=== PATIENT | female | born 1990 | race Caucasian/White ===

== ENCOUNTER 2018-03-06 14:59 | Emergency (ER) | payer MEDICAID ==
[~2018-03-06] VITALS: Ht 165.1 cm; Wt 97.5 kg
[2018-03-06 15:04] VITALS: BP 146/82
--- NOTE | 2018-03-06 15:16 | NUR ---
PATIENT PRESENTS TO ED WITH C/O HEAD PAIN S/P HEAD INJURY ON SUNDAY. STATES SHE HIT HER HEAD ON A HAND DRYER. WAS SEEN AT [facility] AND GIVEN ARNIE. PT REPORTS THEY DID NOT DO A HEAD CT AND SHE IS WORRIED BECAUSE THE PAIN IS STILL SEVERE AND HER HEARING GOES "IN AND OUT". 7/10 TOP OF HEAD. PT REPORTS DIZZINESS, DENIES N/V. REPORTS LETHARGY. 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 ER MD MADE AWARE OF PT STATUS.
--- NOTE | 2018-03-06 15:21 | NUR ---
Patient being evaluated by physician at bedside.
[2018-03-06 15:46] VITALS: BP 142/78
== END 2018-03-06 15:46 | disposition home or self-care (01) ==
LOC: MED 14:59
DX: S06.0X0A Concussion without loss of consciousness, initial encounter (principal); S01.00XA Unspecified open wound of scalp, initial encounter; E11.9 Type 2 diabetes mellitus without complications; Z88.0 Allergy status to penicillin; X58.XXXA Exposure to other specified factors, initial encounter; Y93.H9 Activity, other involving exterior property and land maintenance, building and construction; Y92.89 Other specified places as the place of occurrence of the external cause; Y99.8 Other external cause status
CPT/HCPCS: 82948; 99282

== ENCOUNTER 2018-06-24 16:14 | Emergency (ER) | payer MEDICAID ==
[~2018-06-24] VITALS: Ht 162.6 cm; Wt 98.1 kg
[2018-06-24 16:24] VITALS: BP 139/77
--- NOTE | 2018-06-24 16:33 | NUR ---
URINE CUP HANDED TO PT FOR SAMPLE
--- NOTE | 2018-06-24 16:50 | NUR ---
PT AMBULATED TO ER BED 03
--- NOTE | 2018-06-24 16:55 | NUR ---
PATIENT PRESENTS TO ED WITH THE C/O CONGESTION. LUNGS CLEAR. DENIES ANY FEVER. NO BLOOD IN SPUTUM. DENIES N/V/D; SKIN IS PINK/WARM/DRY; AAOX4 WITH EVEN AND STEADY GAIT. PT DENIES ANY CP, SOB, OR COUGH AT THIS TIME. PATIENT STATES PAIN OF 0/10 AT THIS TIME; VSS; PATIENT POSITIONED FOR COMFORT; HOB ELEVATED; BEDRAILS UP X2; BED DOWN. ER MD MADE AWARE OF PT STATUS.
[2018-06-24 18:19] VITALS: BP 125/72
--- NOTE | 2018-06-24 18:19 | NUR ---
Patient discharged with v/s stable. Written and verbal after care instructions given and explained. Patient verbalized understanding. Ambulatory with steady gait. All questions addressed prior to discharge. Advised to follow up with PMD.
== END 2018-06-24 18:19 | disposition home or self-care (01) ==
LOC: MED 16:14
DX: J40 Bronchitis, not specified as acute or chronic (principal); J45.909 Unspecified asthma, uncomplicated; E11.9 Type 2 diabetes mellitus without complications; Z88.0 Allergy status to penicillin
CPT/HCPCS: 99283

== ENCOUNTER 2018-07-09 08:17 | Emergency (ER) | payer MEDICAID ==
[~2018-07-09] VITALS: Ht 165.1 cm; Wt 96.6 kg
--- NOTE | 2018-07-09 08:23 | NUR ---
PT AMBULATES TO BED 11
[2018-07-09 08:25] VITALS: BP 126/77
--- NOTE | 2018-07-09 08:30 | NUR ---
28 YO F C/O PRODUCTIVE COUGH, BILATERAL EAR PAIN AND MOODY. PER PT YELLOW PHLEGM WITH SCANT BLOOD IS PRESENT. WHEEZING BILATERALLY, PT PLACED IN BED AND CONNECTED TO MONITOR. ER AWARE.
--- NOTE | 2018-07-09 08:36 | NUR ---
Patient being evaluated by physician at bedside.
[2018-07-09] MEDS ORDERED: METF1000 PO (08:40)
[2018-07-09] MEDS ORDERED: ALBU0.0912 IH (08:40)
[2018-07-09] MEDS ORDERED: NACL 0.9% 500 ML IV SCH (08:41)
[2018-07-09 08:59] LABS: BASOPHILS # (AUTO) 0.1 K/uL (0.00-0.22); BASOPHILS % (AUTO) 0.3 % (0.0-2.0); EOSINOPHILS # (AUTO) 0.1 K/uL (0-0.4); EOSINOPHILS % (AUTO) 0.7 % (0.0-4.0); HEMATOCRIT 42.2 % (36-48); HEMOGLOBIN 14.2 g/dL (12.0-16.0); LYMPHOCYTES # (AUTO) 1.5 K/uL (2.5-16.5); LYMPHOCYTES % (AUTO) 8.1 % (20.5-51.1); MEAN CORPUSCULAR HEMOGLOBIN 27 pg (27-31); MEAN CORPUSCULAR HGB CONC 34 g/dL (33-37); MEAN CORPUSCULAR VOLUME 81.5 fL (80-94); MONOCYTES # (AUTO) 1.3 K/uL (0.8-1.0); MONOCYTES % (AUTO) 7.2 % (1.7-9.3); NEUTROPHILS # (AUTO) 15.7 K/uL (1.8-7.7); NEUTROPHILS % (AUTO) 83.7 % (42.2-75.2); PLATELET COUNT (AUTO) 361 K/uL (140-450); RED BLOOD CELL COUNT(AUTO) 5.18 MIL/uL (4.20-5.40); RED CELL DISTRIBUTION WIDTH 13.2 % (11.6-13.7); WHITE BLOOD COUNT (AUTO) 18.8 K/uL (4.8-10.8)
[2018-07-09 09:13] LABS: CARBON DIOXIDE 24.8 mmol/L (21-32); CREATININE 0.7 mg/dL (0.6-1.3); POTASSIUM 3.8 mmol/L (3.5-5.1)
[2018-07-09 09:17] LABS: BILIRUBIN,URINE NEGATIVE (NEGATIVE); BLOOD, URINE NEGATIVE (NEGATIVE); COLOR,URINE YELLOW (YELLOW); LEUKOCYTE ESTERASE ,URINE 1+ (NEGATIVE); NITRITE, URINE NEGATIVE (NEGATIVE); PH,URINE 6.5 (5.0-9.0); UGLUCOSE NEGATIVE (NEGATIVE)
[2018-07-09 09:19] LABS: ALBUMIN 3.5 g/dL (3.4-5.0); TOTAL BILIRUBIN 0.6 mg/dL (0.0-1.0)
[2018-07-09] MEDS ORDERED: ACETAMINOPHEN 325 MG TAB PO ONE (09:20)
[2018-07-09 09:24] LABS: APPEARANCE,URINE HAZY (CLEAR)
[2018-07-09 09:36] LABS: RBC,URINE 0-5 /HPF (0-5)
[2018-07-09] MEDS ORDERED: LEVOFLOXACIN 750 MG/D5W PREMIX 150 ML IV ONE (09:45)
--- NOTE | 2018-07-09 09:52 | NUR ---
ONLY 500 ML OF FLUID INFUSED FROM 1000ML BAG. PT TOLERATED WELL, NO ADVERSE REACTION OBSERVED.
--- NOTE | 2018-07-09 10:43 | NUR ---
DR VALADEZ AT BEDSIDE. PT STATED THAT HEADACHE DECREASED TO 6/10 AFTER TYLENOL ADMINISTRATION.
[2018-07-09] MEDS ORDERED: KETOROLAC 30 MG/ML VIAL IVP ONE (10:45)
[2018-07-09] MEDS ORDERED: NACL 0.9% 1,000 ML IV ONE (10:45)
--- NOTE | 2018-07-09 11:32 | NUR ---
MEDICAITON ADMISTERED ORDERED, PT STATES MOODY DECREASED TO 3/10. REMAINS TACHYCARDIC HR 113 ON MONITOR.
--- NOTE | 2018-07-09 13:35 | NUR ---
Patient discharged with v/s stable. Written and verbal after care instructions given and explained. Patient alert, oriented and verbalized understanding of instructions. Ambulatory with steady gait. All questions addressed prior to discharge. ID band removed. Patient advised to follow up with PMD. Rx of motrin, zofran, levofloxacin, codeine cough syrup given. Patient educated on indication of medication including possible reaction and side effects. Opportunity to ask questions provided and answered.
[2018-07-09 13:41] VITALS: BP 121/72
== END 2018-07-09 13:35 | disposition home or self-care (01) ==
LOC: MED 08:17
DX: N39.0 Urinary tract infection, site not specified (principal); E11.9 Type 2 diabetes mellitus without complications; Z88.0 Allergy status to penicillin; Z79.84 Long term (current) use of oral hypoglycemic drugs; Z79.899 Other long term (current) drug therapy
CPT/HCPCS: 36415; 71045; 80053; 81001; 81025; 82948; 83605; 85025; 87040; 87086; 93005; 96365; 96366; 96375; 99284; J1885; J1956; J7030; Q0092

== ENCOUNTER 2018-10-14 16:09 | Emergency (ER) | payer MEDICAID ==
[~2018-10-14] VITALS: Ht 165.1 cm; Wt 98.5 kg
[~2018-10-14 16:09] MED LIST: ALBU0.0912 IH; METF1000 PO
[2018-10-14 16:32] VITALS: BP 129/65
--- NOTE | 2018-10-14 16:41 | NUR ---
PT AMBULATED TO BED 04.
--- NOTE | 2018-10-14 16:57 | NUR ---
PT DECIDED NOT TO WAIT FOR MD SAEED---AFTER SPEAKING WITH PT SHE DECIDED TO SEE HER PMD UPCOMING APPT
== END 2018-10-14 16:57 | disposition left against medical advice (07) ==
LOC: MED 16:09
DX: R20.0 Anesthesia of skin (principal); R51 Headache; Z53.21 Procedure and treatment not carried out due to patient leaving prior to being seen by health care provider
CPT/HCPCS: 82948

== ENCOUNTER 2018-10-18 21:34 | Emergency (ER) | payer MEDICAID ==
[~2018-10-18] VITALS: Ht 165.1 cm; Wt 98.4 kg
[2018-10-18 21:40] VITALS: BP 142/74
--- NOTE | 2018-10-18 21:40 | NUR ---
PATIENT AMBULATED TO ER BED 5.
--- NOTE | 2018-10-18 21:59 | NUR ---
28 Y/O F PRESENTED TO ED WITH C/O RASH THROUGHOUT BODY X3 DAYS. REDDENED RASH NOTED TO R, L AC, AND CHEST. PT SELF MEDICATED WITH BENADRYL, NO RELIEF. PER PT "HAVE BEEN STRATCHING AND I THINK IT MADE IT WORSE." DENIES PAIN. NO CHANGES IN FOOD OR DAILY SOAPS AND DETERGENTS. ERMD NOTIFIED. WILL CONTINUE TO MONITOR.
[2018-10-18] MEDS ORDERED: diphenhydrAMINE 50 MG/ML VIAL IM ONE (22:15)
--- NOTE | 2018-10-18 22:30 | NUR ---
PATIENT RESTING AT THIS TIME. NO SIGNS OF DISTRESS.
[2018-10-18 22:42] LABS: BASOPHILS # (AUTO) 0.1 K/uL (0.00-0.22); BASOPHILS % (AUTO) 0.6 % (0.0-2.0); EOSINOPHILS # (AUTO) 0.3 K/uL (0-0.4); EOSINOPHILS % (AUTO) 2.7 % (0.0-4.0); HEMATOCRIT 43.6 % (36-48); HEMOGLOBIN 14.4 g/dL (12.0-16.0); LYMPHOCYTES # (AUTO) 3.5 K/uL (2.5-16.5); LYMPHOCYTES % (AUTO) 32.4 % (20.5-51.1); MEAN CORPUSCULAR HEMOGLOBIN 28 pg (27-31); MEAN CORPUSCULAR HGB CONC 33 g/dL (33-37); MEAN CORPUSCULAR VOLUME 83.6 fL (80-94); MONOCYTES # (AUTO) 0.8 K/uL (0.8-1.0); MONOCYTES % (AUTO) 7.8 % (1.7-9.3); NEUTROPHILS # (AUTO) 6.1 K/uL (1.8-7.7); NEUTROPHILS % (AUTO) 56.5 % (42.2-75.2); PLATELET COUNT (AUTO) 362 K/uL (140-450); RED BLOOD CELL COUNT(AUTO) 5.21 MIL/uL (4.20-5.40); WHITE BLOOD COUNT (AUTO) 10.8 K/uL (4.8-10.8)
[2018-10-18 22:59] LABS: ANION GAP 14.8 (8-16); CARBON DIOXIDE 24.7 mmol/L (21-32); POTASSIUM 3.5 mmol/L (3.5-5.1)
[2018-10-18 23:05] LABS: ALBUMIN 3.6 g/dL (3.4-5.0); TOTAL BILIRUBIN 0.4 mg/dL (0.0-1.0)
[2018-10-18 23:51] VITALS: BP 137/82
--- NOTE | 2018-10-18 23:51 | NUR ---
Patient discharged with v/s stable. Written and verbal after care instructions given and explained. Patient alert, oriented and verbalized understanding of instructions. Ambulatory with steady gait. All questions addressed prior to discharge. ID band removed. Patient advised to follow up with PMD. Rx of DIPHENHYDRAMINE HYDROCHLORIDE 25MG AND PREDNISONE 50MG given. Patient educated on indication of medication including possible reaction and side effects. Opportunity to ask questions provided and answered.
== END 2018-10-18 23:51 | disposition home or self-care (01) ==
LOC: MED 21:34
DX: S40.862A Insect bite (nonvenomous) of left upper arm, initial encounter (principal); E11.9 Type 2 diabetes mellitus without complications; Z79.84 Long term (current) use of oral hypoglycemic drugs; Z79.899 Other long term (current) drug therapy; Z88.0 Allergy status to penicillin; W57.XXXA Bitten or stung by nonvenomous insect and other nonvenomous arthropods, initial encounter; Y93.89 Activity, other specified; Y92.89 Other specified places as the place of occurrence of the external cause; Y99.8 Other external cause status
CPT/HCPCS: 36415; 80053; 81002; 81025; 85025; 96372; 99283; J1200

== ENCOUNTER 2018-11-07 11:20 | Emergency (ER) | payer MEDICAID ==
[~2018-11-07] VITALS: Ht 165.1 cm; Wt 96.6 kg
[2018-11-07 11:36] VITALS: BP 129/89
--- NOTE | 2018-11-07 11:36 | NUR ---
Patient ambulated to bed 11. RN evaluating patient at bedside.
--- NOTE | 2018-11-07 11:46 | NUR ---
Dr. Webster evaluating patient at bedside.
--- NOTE | 2018-11-07 11:50 | NUR ---
PT PRESENTED TO ED C/O BILATERAL ARM RASHES [id number], PT STATED IT COMES AND GOES AND IS CONCERNED WHY SHE'S BEEN HAVING THE RASH. AAOX4, RR EVEN UNLABORED, BILATERAL ARMS NOTED WITH SKIN RASH NO ITCHING AT THIS TIME, NO C/O PAIN AT THE SITE. DR MUHAMMAD MADE AWARE, BED IN LOWEST POSITION. WILL CONTINUE TO MONITOR CLOSELY.
[2018-11-07 12:15] VITALS: BP 129/89
--- NOTE | 2018-11-07 12:15 | NUR ---
Patient discharged with v/s stable. Written and verbal after care instructions given and explained. Patient alert, oriented and verbalized understanding of instructions. Ambulatory with steady gait. All questions addressed prior to discharge. ID band removed. Patient advised to follow up with PMD. Rx of HYDROCORTISONE 2.5% TOPICAL CREAM given. Patient educated on indication of medication including possible reaction and side effects. Opportunity to ask questions provided and answered.
== END 2018-11-07 12:15 | disposition home or self-care (01) ==
LOC: MED 11:20
DX: L30.9 Dermatitis, unspecified (principal); E11.9 Type 2 diabetes mellitus without complications; Z79.84 Long term (current) use of oral hypoglycemic drugs; Z79.899 Other long term (current) drug therapy; Z88.0 Allergy status to penicillin
CPT/HCPCS: 82948; 99282

== ENCOUNTER 2019-01-25 19:45 | Emergency (ER) | payer MEDICAID ==
[~2019-01-25] VITALS: Ht 165.1 cm; Wt 97.1 kg
--- NOTE | 2019-01-25 19:52 | NUR ---
PT AMBULATED TO ER BED 11
[2019-01-25 19:54] VITALS: BP 128/73
--- NOTE | 2019-01-25 20:04 | NUR ---
28 YO F BIB SELF AND PRESENTS TO ED C/O SHAKING X 3-4 DAYS. PT ALSO STATES "I FEEL LIKE MY TONGUE WANTS TO GO DOWN MY THROAT. I CAN FEEL SOMETHING IN MY THROAT" AND SENSATION OF RAPID HEART RATE STARTING TODAY. DENIES SOB OR CP OR KNOWN ALLERGIC RXN. PT ALSO DENIES HX OF ANXIETY. 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 -- PT AWAKE, A/O X 4. PT APPEARS ANXIOUS; RESTLESS, UPSET. ANSWERS QUESTIONS IN CLEAR, COMPLETE SENTENCES. -- SKIN PINK, WARM, DRY. BREATHING EVEN, UNLABORED. -- PT STICKS OUT TONGUE WITHOUT DIFFICULTY. TONGUE APPEARS PINK, NORMAL. PT CAN SWALLOW WITHOUT DIFFICULTY. -- PT IS TACHYCARDIC @ 124 BPM. PMH-- HTN, DM, HIGH CHOLESTEROL, PULMONARY DYSPLASIA AT BS-- 232
--- NOTE | 2019-01-25 20:04 | NUR ---
DR. BONDS EVALUATING AT BEDSIDE.
[2019-01-25] MEDS ORDERED: LORazepam 2 MG/ML VIAL IM ONE (20:10)
--- NOTE | 2019-01-25 21:10 | NUR ---
PT STATES SHE FEELS TIRED AFTER RECEIVING ATIVAN INJECTION; STATES SHE STILL FEELS LIKE SHE HAS SOMETHING IN HER THROAT.
--- NOTE | 2019-01-25 21:40 | NUR ---
PT TAKEN TO CT VIA WC.
--- NOTE | 2019-01-25 22:10 | NUR ---
PT BACK FROM CT
[2019-01-25 23:53] VITALS: BP 135/89
== END 2019-01-25 23:53 | disposition home or self-care (01) ==
LOC: MED 19:45
DX: F41.8 Other specified anxiety disorders (principal); E11.9 Type 2 diabetes mellitus without complications; Z79.84 Long term (current) use of oral hypoglycemic drugs; Z79.899 Other long term (current) drug therapy; Z88.0 Allergy status to penicillin
CPT/HCPCS: 70486; 70490; 81025; 96372; 99284; J2060

== ENCOUNTER 2019-05-21 19:28 | Emergency (ER) | payer MEDICAID ==
[~2019-05-21] VITALS: Ht 165.1 cm; Wt 99.8 kg
[2019-05-21 19:35] VITALS: BP 122/76
[2019-05-21 19:40] VITALS: BP 122/76
[2019-05-21] MEDS: DEXAMETHASONE 10 MG/ML VIAL IM ONE (21:29)
== END 2019-05-21 21:45 | disposition home or self-care (01) ==
LOC: MED 19:28
DX: J20.9 Acute bronchitis, unspecified (principal); E11.9 Type 2 diabetes mellitus without complications; I10 Essential (primary) hypertension; Z79.899 Other long term (current) drug therapy; Z88.0 Allergy status to penicillin
CPT/HCPCS: 71045; 87804; 96372; 99284; J1100

== ENCOUNTER 2020-09-02 17:14 | Emergency (ER) | payer MEDICAID ==
[~2020-09-02] VITALS: Ht 165.1 cm; Wt 97.5 kg
[2020-09-02 17:21] VITALS: BP 130/85
--- NOTE | 2020-09-02 17:27 | NUR ---
PATIENT AMBULATED WITH STEADY GAIT TO BED 7.
--- NOTE | 2020-09-02 17:32 | NUR ---
30 Y/O FEMALE C/O GENERALIZED WEAKNESS, N/V , HEADACHE X4 DAYS. HR 108, BLOOD SUGAR 155 AT THIS TIME. PT STATES SHE IS "JUST NOT FEELING WELL", AND WANTED TO COME TO ER TO GET EVALUATED. DENIES ANY DRUG OR ALCOHOL USE. PATIENT STATES SHE CHECKED HER BS YESTERDAY AND WAS IN THE 300S PMH: DM
[2020-09-02] MEDS: ONDANSETRON 4 MG/2 ML VIAL IVP ONE (18:27)
[2020-09-02] MEDS: NACL 0.9% 1,000 ML IV ONE (18:27)
[2020-09-02] MEDS ORDERED: ONDA8TAB87 PO (18:41)
[2020-09-02 19:35] VITALS: BP 118/78
--- NOTE | 2020-09-04 19:39 | NUR ---
LATE ENTRY-- 0.9% NS BOLUS DISCONTINUED AT 193
== END 2020-09-02 19:35 | disposition home or self-care (01) ==
LOC: MED 17:14
DX: R00.2 Palpitations (principal); R11.2 Nausea with vomiting, unspecified; R19.7 Diarrhea, unspecified; E11.9 Type 2 diabetes mellitus without complications; Z88.0 Allergy status to penicillin; Z79.84 Long term (current) use of oral hypoglycemic drugs; Z79.899 Other long term (current) drug therapy
CPT/HCPCS: 81002; 81025; 93005; 96361; 96374; 99283; J2405; J7030

== ENCOUNTER 2020-12-12 13:10 | Emergency (ER) | payer MEDICAID ==
[~2020-12-12] VITALS: Ht 165.1 cm; Wt 92.5 kg
[~2020-12-12 13:10] MED LIST changes: +ONDA8TAB87 PO
[2020-12-12 13:18] VITALS: BP 135/55
--- NOTE | 2020-12-12 13:26 | NUR ---
Pt ambulated to bed 04 with steady/even gait.
--- NOTE | 2020-12-12 13:30 | NUR ---
30 y/o F BIB self from home c/o left foot pain x 2 weeks. Pt states standing for long periods at work worsens pain. 8/10, pressure/constant, non-radiating. Denies trauma, fall, injury. Pt reports numbness/tingling to bilateral feet. +ROM +CMS +Swelling to L lateral foot. Tylenol 500mg yesterday with minor relief to pain. pedal pulses 2+. pt states light feeling upon palaption to Lt foot 4th digit. PMH: DM2, asthma, HLD Meds: Insulin, metformin, atorvastatin Allergy: PCN
--- NOTE | 2020-12-12 13:45 | NUR ---
LAUREN DELA CRUZ AT BEDSIDE EXAMINING PT
[2020-12-12] MEDS ORDERED: NAPR-54 PO (14:03)
[2020-12-12] MEDS ORDERED: GABA300C PO (14:03)
[2020-12-12] MEDS ORDERED: KETOROLAC 30 MG/ML VIAL IM ONE (14:05)
[2020-12-12 14:30] VITALS: BP 135/55
--- NOTE | 2020-12-12 14:30 | NUR ---
Patient discharged with v/s stable. Written and verbal after care instructions given and explained. Patient alert, oriented and verbalized understanding of instructions. Ambulatory with steady gait. All questions addressed prior to discharge. ID band removed. Patient advised to follow up with PMD. Rx of GABAPENTIN AND NAPROXEN given. Patient educated on indication of medication including possible reaction and side effects. Opportunity to ask questions provided and answered.
== END 2020-12-12 14:30 | disposition home or self-care (01) ==
LOC: MED 13:10
DX: M79.671 Pain in right foot (principal); M79.672 Pain in left foot; E11.40 Type 2 diabetes mellitus with diabetic neuropathy, unspecified; Z79.84 Long term (current) use of oral hypoglycemic drugs; Z79.899 Other long term (current) drug therapy; Z88.0 Allergy status to penicillin
CPT/HCPCS: 96372; 99283; J1885

== ENCOUNTER 2020-12-20 15:05 | Emergency (ER) | payer MEDICAID ==
[~2020-12-20 15:05] MED LIST changes: +GABA300C PO; +NAPR-54 PO
--- NOTE | 2020-12-20 16:01 | NUR ---
PATIENT LEFT WITHOUT BEING SEEN BY DR. SCHULTZ. NO FURTHER CARE PROVIDED FOR PATIENT.
== END 2020-12-20 16:01 | disposition left against medical advice (07) ==
LOC: MED 15:05
DX: R19.7 Diarrhea, unspecified (principal); Z53.21 Procedure and treatment not carried out due to patient leaving prior to being seen by health care provider

== ENCOUNTER 2021-03-29 00:26 | Emergency (ER) | payer MEDICAID ==
[~2021-03-29] VITALS: Ht 165.1 cm; Wt 88.5 kg
[2021-03-29 00:40] VITALS: BP 118/75
--- NOTE | 2021-03-29 00:42 | NUR ---
TO LOBBY A/W BED AMBULATORY
--- NOTE | 2021-03-29 01:06 | NUR ---
PT AMBULATED TO BED #2
[2021-03-29] MEDS ORDERED: IBUPROFEN 600 MG TAB PO ONE (01:10)
--- NOTE | 2021-03-29 02:07 | NUR ---
30 Y/0 F BIB SELF WITH C/O RT ANKLE PAIN/ PT STATES THAT ON 03/27 SHE STARTED TO FEEL PAIN AND SWELLING BEGAN ON 03/28. PT SAID THAT SHE WAS WALKING ON THE HURT ANKLE ALL DAY AND IT STARTED TO SWELL TO THE SIZE OF A GOLF BALL. PT STATES 8/10 PAIN WHEN RESTING, 10/10 WHEN WALKING.PT STATES THAT SHE WAS HOSPITALIZED LAST WEEK FOR 5X DAYS . PT HAD A RASH AND SWOLLEN FINGERS. PT WAS TOLD TO FOLLOW UP WITH DOCTOR TO RULE OUT LUPUS/ ETELVINA DISEASE. PT STATES SHE IS GOING TO FOLLOW UP BUT APPT IS NOT UNTIL AUGUST. PT TOOK TYLENOL FOR PAIN. PT DENIES F/V/COUGH/ SOB . ONLY HAS NAUSEA WHEN PAIN COMES ON. MED HX:DIABETIC
--- NOTE | 2021-03-29 03:15 | NUR ---
PT RT ANKLE WRAPPED PER SONIA
[2021-03-29 03:31] VITALS: BP 114/66
--- NOTE | 2021-03-29 04:09 | NUR ---
The patient's care was reviewed and supervised by Rosa Garcia RN.
== END 2021-03-29 03:37 | disposition home or self-care (01) ==
LOC: MED 00:26
DX: S93.401A Sprain of unspecified ligament of right ankle, initial encounter (principal); E11.9 Type 2 diabetes mellitus without complications; I10 Essential (primary) hypertension; Z88.0 Allergy status to penicillin; Z79.899 Other long term (current) drug therapy; Z79.84 Long term (current) use of oral hypoglycemic drugs; X50.1XXA Overexertion from prolonged static or awkward postures, initial encounter; Y93.89 Activity, other specified; Y92.89 Other specified places as the place of occurrence of the external cause; Y99.8 Other external cause status
CPT/HCPCS: 73610; 99283

== ENCOUNTER 2021-04-18 23:57 | Emergency (ER) | payer MEDICAID ==
[~2021-04-18] VITALS: Ht 162.6 cm; Wt 88.9 kg
[2021-04-19 00:13] VITALS: BP 129/51
--- NOTE | 2021-04-19 00:20 | NUR ---
PT TO LOBBY
[2021-04-19 01:41] LABS: BASOPHILS # (AUTO) 0.1 K/uL (0.00-0.22); BASOPHILS % (AUTO) 0.8 % (0.0-2.0); EOSINOPHILS # (AUTO) 0.2 K/uL (0-0.4); EOSINOPHILS % (AUTO) 1.8 % (0.0-4.0); HEMATOCRIT 37.4 % (36-48); HEMOGLOBIN 12.6 g/dL (12.0-16.0); LYMPHOCYTES # (AUTO) 2.8 K/uL (2.5-16.5); LYMPHOCYTES % (AUTO) 24.7 % (20.5-51.1); MEAN CORPUSCULAR HEMOGLOBIN 28 pg (27-31); MEAN CORPUSCULAR HGB CONC 34 g/dL (33-37); MEAN CORPUSCULAR VOLUME 83.7 fL (80-94); MONOCYTES # (AUTO) 0.8 K/uL (0.8-1.0); MONOCYTES % (AUTO) 7.5 % (1.7-9.3); NEUTROPHILS # (AUTO) 7.3 K/uL (1.8-7.7); NEUTROPHILS % (AUTO) 65.2 % (42.2-75.2); PLATELET COUNT (AUTO) 385 K/uL (140-450); RED BLOOD CELL COUNT(AUTO) 4.47 MIL/uL (4.20-5.40); RED CELL DISTRIBUTION WIDTH 13.7 % (11.6-13.7); WHITE BLOOD COUNT (AUTO) 11.2 K/uL (4.8-10.8)
[2021-04-19 01:50] LABS: APPEARANCE,URINE CLEAR (CLEAR); BILIRUBIN,URINE NEGATIVE (NEGATIVE); BLOOD, URINE NEGATIVE (NEGATIVE); COLOR,URINE YELLOW (YELLOW); LEUKOCYTE ESTERASE ,URINE NEGATIVE (NEGATIVE); NITRITE, URINE NEGATIVE (NEGATIVE); UGLUCOSE NEGATIVE (NEGATIVE)
== END 2021-04-19 03:44 | disposition home or self-care (01) ==
LOC: MED 23:57
DX: O20.0 Threatened abortion (principal); O24.111 Pre-existing type 2 diabetes mellitus, in pregnancy, first trimester; Z3A.01 Less than 8 weeks gestation of pregnancy; Z79.51 Long term (current) use of inhaled steroids; Z79.899 Other long term (current) drug therapy; Z79.1 Long term (current) use of non-steroidal anti-inflammatories (NSAID); Z88.0 Allergy status to penicillin
CPT/HCPCS: 36415; 76817; 81003; 84702; 85025; 86900; 86901; 99284; Q0092

== ENCOUNTER 2021-04-22 14:52 | Emergency (ER) | payer MEDICAID ==
[~2021-04-22] VITALS: Ht 165.1 cm; Wt 88.6 kg
[2021-04-22 15:35] VITALS: BP 113/67
[2021-04-22 17:56] VITALS: BP 109/70
== END 2021-04-22 17:56 | disposition home or self-care (01) ==
LOC: MED 14:52
DX: O20.8 Other hemorrhage in early pregnancy (principal); E11.9 Type 2 diabetes mellitus without complications; Z88.0 Allergy status to penicillin; Z3A.08 8 weeks gestation of pregnancy
CPT/HCPCS: 76817; 81002; 81025; 99284; Q0092

== ENCOUNTER 2021-04-26 09:10 | Emergency (ER) | payer MEDICAID ==
[~2021-04-26] VITALS: Ht 154.9 cm; Wt 88.5 kg
[2021-04-26 09:24] VITALS: BP 109/66
[2021-04-26] MEDS ORDERED: ACETAMINOPHEN 325 MG TAB PO ONE (10:05)
[2021-04-26] MEDS ORDERED: ACET-10509 PO (10:08)
[2021-04-26] MEDS ORDERED: ONDA-188 PO (10:08)
[2021-04-26 10:35] VITALS: BP 109/66
--- NOTE | 2021-04-26 10:36 | NUR ---
Patient discharged with v/s stable. Written and verbal after care instructions given and explained. Patient alert, oriented and verbalized understanding of instructions. Ambulatory with steady gait. All questions addressed prior to discharge. ID band removed. Patient advised to follow up with PMD. Rx of TYLENOL EXTRA STRENGTH,ZOFRAN given. Patient educated on indication of medication including possible reaction and side effects. Opportunity to ask questions provided and answered.
[2021-04-27] MEDS ORDERED: ONDA-188 SL (04:09)
== END 2021-04-26 10:36 | disposition home or self-care (01) ==
LOC: MED 09:10
DX: O26.891 Other specified pregnancy related conditions, first trimester (principal); R51.9 Headache, unspecified; E11.9 Type 2 diabetes mellitus without complications; Z88.0 Allergy status to penicillin; Z3A.01 Less than 8 weeks gestation of pregnancy; Z79.899 Other long term (current) drug therapy; Z79.84 Long term (current) use of oral hypoglycemic drugs
CPT/HCPCS: 99283

== ENCOUNTER 2021-04-26 19:49 | Inpatient (IN) | payer MEDICAID, SELFPAY ==
[~2021-04-26] VITALS: Ht 165.1 cm; Wt 84.4 kg
[~2021-04-26 19:49] MED LIST changes: +ACET-10509 PO; +ONDA-188 PO
[2021-04-26 19:54] VITALS: BP 117/62
--- NOTE | 2021-04-26 19:57 | NUR ---
TO LOBBY A/W BED AMBULATORY
[2021-04-27] MEDS ORDERED: ACETAMINOPHEN EXTRA STRENGTH 500 MG TAB PO ONE (00:15)
[2021-04-27] MEDS ORDERED: NACL 0.9% 1,000 ML IV ONE ×2 (00:15→05:15)
[2021-04-27] MEDS ORDERED: ONDANSETRON 4 MG/2 ML VIAL IVP ONE (00:15)
--- NOTE | 2021-04-27 00:24 | NUR ---
PATIENT TO [facility] W/C ASSISTED
--- NOTE | 2021-04-27 00:24 | NUR ---
patient from home c/o fever, n, v, and morriosn with worsening sx. patient has cold like sx an denies contacting someone whose sick. patient reports having 100.0 F fever. started yesterday and has persisted. patient took OTC medication with no relief. gen body weakness, dizziness, and fatigue also associated with following sx. L0 pmh: NIDDM, lupus, and bronchopulmonary dysplasia allergies: penicillins
--- NOTE | 2021-04-27 00:24 | NUR ---
PATIENT REFUSED CT PATIENT IS
--- NOTE | 2021-04-27 01:05 | NUR ---
PATIENT C/O SUDDEN WEAKNESS AND LIGHTHEADEDNESS
--- NOTE | 2021-04-27 01:16 | NUR ---
PT TO US VIA W/C
[2021-04-27 03:27] LABS: BASOPHILS % (AUTO) 0.5 % (0.0-2.0); EOSINOPHILS % (AUTO) 0.2 % (0.0-4.0); HEMATOCRIT 44.1 % (36-48); HEMOGLOBIN 14.9 g/dL (12.0-16.0); LYMPHOCYTES # (AUTO) 0.4 K/uL (2.5-16.5); LYMPHOCYTES % (AUTO) 5.8 % (20.5-51.1); MEAN CORPUSCULAR HEMOGLOBIN 29 pg (27-31); MEAN CORPUSCULAR HGB CONC 34 g/dL (33-37); MEAN CORPUSCULAR VOLUME 84.5 fL (80-94); MONOCYTES # (AUTO) 0.8 K/uL (0.8-1.0); MONOCYTES % (AUTO) 10.8 % (1.7-9.3); NEUTROPHILS # (AUTO) 6.1 K/uL (1.8-7.7); NEUTROPHILS % (AUTO) 82.7 % (42.2-75.2); PLATELET COUNT (AUTO) 320 K/uL (140-450); RED BLOOD CELL COUNT(AUTO) 5.21 MIL/uL (4.20-5.40); WHITE BLOOD COUNT (AUTO) 7.3 K/uL (4.8-10.8)
[2021-04-27 03:40] LABS: ALBUMIN 4.4 g/dL (3.4-5.0); ANION GAP 18.2 (8-16); CARBON DIOXIDE 20.6 mmol/L (21-32); CREATININE 0.6 mg/dL (0.6-1.3); POTASSIUM 3.8 mmol/L (3.5-5.1); TOTAL BILIRUBIN 0.3 mg/dL (0.0-1.0)
--- NOTE | 2021-04-27 04:06 | NUR ---
PT REFUSED CT
[2021-04-27] MEDS ORDERED: ONDA-188 SL (04:09)
[2021-04-27 05:02] LABS: APPEARANCE,URINE CLEAR (CLEAR); BILIRUBIN,URINE NEGATIVE (NEGATIVE); BLOOD, URINE NEGATIVE (NEGATIVE); COLOR,URINE YELLOW (YELLOW); LEUKOCYTE ESTERASE ,URINE NEGATIVE (NEGATIVE); NITRITE, URINE NEGATIVE (NEGATIVE); UGLUCOSE NEGATIVE (NEGATIVE)
--- NOTE | 2021-04-27 06:14 | NUR ---
patient to [facility]
--- NOTE | 2021-04-27 07:11 | NUR ---
PT ASLEEP IN CHAIR. NO DISTRESS NOTED AT THIS TIME. FLUIDS RUNNING AND IV PATENT
--- NOTE | 2021-04-27 07:37 | NUR ---
ASSUMED CARE OF PATIENT FOR DAY SHIFT AT THIS TIME
[2021-04-27] MEDS ORDERED: POTASSIUM CHLORIDE 10 MEQ TABER PO PRN (08:25)
[2021-04-27] MEDS ORDERED: DOCUSATE SODIUM 100 MG GELCAP PO PRN (08:25)
[2021-04-27] MEDS ORDERED: ONDANSETRON 4 MG/2 ML VIAL IM/IVP PRN (08:25)
[2021-04-27] MEDS ORDERED: ACETAMINOPHEN 325 MG TAB PO PRN (08:25)
[2021-04-27] MEDS ORDERED: SODIUM PHOS / POTASSIUM PHOS 1 PKT PDR PO PRN (08:25)
[2021-04-27] MEDS ORDERED: NACL 0.9% 1,000 ML IV SCH (08:25)
[2021-04-27] MEDS ORDERED: MAGNESIUM OXIDE 400 MG TAB PO PRN (08:25)
[2021-04-27] MEDS ORDERED: DEXTROSE 50% 50 ML SYR IVP PRN (08:30)
[2021-04-27] MEDS ORDERED: PANTOPRAZOLE 40 MG TABEC PO SCH (09:00)
--- NOTE | 2021-04-27 09:46 | NUR ---
PATIENT MOVED TO BED 5, ASSUMED CARE OF PATIENT AT THIS TIME.
--- NOTE | 2021-04-27 09:50 | NUR ---
PATIENT AMBULATED BACK TO BED FROM RESTROOM, PLACED IN GOWN, ON BEDSIDE CARIDAC MONITOR, WILL CONTINUE TO MONITOR.
--- NOTE | 2021-04-27 09:50 | NUR ---
PATIENT AMBULATED TO RESTROOM WITH STEADY GAIT
--- NOTE | 2021-04-27 10:03 | NUR ---
PATIENT PROVIDED WITH SANDWICH
[2021-04-27] MEDS: BLOOD GLUCOSE MONITORING 1 DEV DEV FS SCH ×3 (11:55→21:32)
[2021-04-27] MEDS: INSULIN LISPRO SLIDING SCALE 100 UNITS/ML VIAL SUBQ PRN (12:00)
--- NOTE | 2021-04-27 12:03 | NUR ---
PATIENT PROVIDED WITH LUNCH TRAY, SITTING UP IN BED EATING. ALL NEEDS MET AT THIS TIME.
--- NOTE | 2021-04-27 15:49 | NUR ---
PATIENT DISCONNECTED FROM MARKETING PRODUCER, AMBULATED WITH STEADY GAIT TO RESTROOM.
--- NOTE | 2021-04-27 19:27 | NUR ---
Pt report given to ROSE COON. Transfer of care at this time.
[2021-04-27 20:00] VITALS: BP_SYST 92; BP_SYST 95; BP_DIAS 52; BP_DIAS 60
[2021-04-27] MEDS ORDERED: COMMUNICATION ORDER MC PRN (20:10)
--- NOTE | 2021-04-27 20:18 | NUR ---
Dr. Mulligan examining patient.
--- NOTE | 2021-04-27 21:30 | NUR ---
PT SUGAR TESTED @150. PER SLIDING SCALE. NO INSULIIN COVERAGE NEEDED
--- NOTE | 2021-04-27 21:40 | NUR ---
Patient will be admitted to care of . Admited to [facility]. Will go to [facility] . Belongings list completed. Report to LONDON DELACRUZ.
--- NOTE | 2021-04-27 22:10 | NUR ---
PT IS A 30Y/O FEMALE ADMITTED TO [facility] FROM ER VIA [facility]. A&OX4. O2 SAT 99% ON RA. SKIN INTACT. HAS IV L HAND 22G SL. AMBULATORY. PT STATES SHE IS 6 WEEKS . "I TRY TO EAT HEALTHY ESPECIALLY NOW THAT I AM . IT'S A CONSTANT CHALLENGE." VSS BP LOW 92/60. REQUIRES DM TEACHING, NUTRITION CONSULT AND REINFORCEMENT. PT DID NOT HAVE COVID VACCINE DUE TO LUPUS, OR REYNAUDS SYNDROME? SHE IS COVID 19+ . DENIES PAIN OR DISTRESS. AT 21:30 [id number] NO COVERAGE GIVEN PER [facility] REPORT. ALL SAFETY MEASURES IN PLACE. CONTINUE TO OBSERVE.
[2021-04-28 04:00] VITALS: BP 102/60
[2021-04-28] MEDS: BLOOD GLUCOSE MONITORING 1 DEV DEV FS SCH ×4 (06:19→20:23)
[2021-04-28 07:38] LABS: ANION GAP 13.3 (8-16); CARBON DIOXIDE 24.7 mmol/L (21-32); CREATININE 0.5 mg/dL (0.6-1.3)
[2021-04-28 08:00] VITALS: BP 106/66
[2021-04-28 08:06] LABS: BASOPHILS % (AUTO) 0.5 % (0.0-2.0); EOSINOPHILS % (AUTO) 0.4 % (0.0-4.0); HEMATOCRIT 38.3 % (36-48); HEMOGLOBIN 12.8 g/dL (12.0-16.0); LYMPHOCYTES # (AUTO) 1.5 K/uL (2.5-16.5); LYMPHOCYTES % (AUTO) 29.6 % (20.5-51.1); MEAN CORPUSCULAR HEMOGLOBIN 28 pg (27-31); MEAN CORPUSCULAR HGB CONC 33 g/dL (33-37); MEAN CORPUSCULAR VOLUME 84.3 fL (80-94); MONOCYTES # (AUTO) 0.7 K/uL (0.8-1.0); MONOCYTES % (AUTO) 14.3 % (1.7-9.3); NEUTROPHILS # (AUTO) 2.9 K/uL (1.8-7.7); NEUTROPHILS % (AUTO) 55.2 % (42.2-75.2); PLATELET COUNT (AUTO) 281 K/uL (140-450); RED BLOOD CELL COUNT(AUTO) 4.55 MIL/uL (4.20-5.40); WHITE BLOOD COUNT (AUTO) 5.2 K/uL (4.8-10.8)
--- NOTE | 2021-04-28 08:43 | NUR ---
PATIENT HAS BEEN SCREENED AND CATEGORIZED HIGH NUTRITION RISK. PATIENT WILL BE SEEN WITHIN 1-2 DAYS OF ADMISSION. 04/28/[address]
[2021-04-28] MEDS: LABETALOL 100 MG TAB PO SCH (09:00)
--- NOTE | 2021-04-28 11:45 | NUR ---
04/28/21 RD INITIAL ASSESSMENT COMPLETED PLEASE REFER TO NUTRITION ASSESSMENT UNDER CARE ACTIVITY FOR ESTIMATED NUTRITIONAL NEEDS. 1. [facility] TOLER[facility] 2. PROVIDED NUTRITION EDUCATION HANDOUTS ON GESTATIONAL DIABETES 3. MONITOR BLOOD GLUCOSE LEVELS 4. RD TO FOLLOW-UP 3-5 DAYS, MODERATE RISK TERRELL ROSS RD
[2021-04-28 12:00] VITALS: BP 105/63
--- NOTE | 2021-04-28 14:32 | NUR ---
POTENTIAL COVID RELATED SKIN FAILURE DUE TO TISSUE LESS TOLERATE TO PRESSURE, SHEARING AND POSSIBLE ASSOCIATED WITH MICROVASCULAR INJURY AND HYPOXIA CONTINUE TO FOLLOW SKIN CARE AND PRESSURE INJURY PREVENTION INTERVENTIONS. -TURN AND REPOSITION PATIENT Q 2H -ASSESS AND MONITOR SKIN CONDITION DURING POSITION CHANGE -OFFLOAD BILATERAL HEELS BY PLACING PILLOWS UNDER CALVES AT ALL TIMES, UNLESS OTHERWISE CONTRAINDICATED -PRESSURE REDISTRIBUTION SURFACE AND OFFLOADING SACRALCOCCYX -KEEP SKIN CLEAN AND DRY AT ALL TIMES.
[2021-04-28 16:00] VITALS: BP 90/53
--- NOTE | 2021-04-28 19:15 | NUR ---
RECEIVED REPORT FROM AM RN. PATIENT IS AWAKE, ALERT ORIENTED X4. NO SOB NOTED. SKIN WARM AND DRY TO THE TOUCH. NO COMPLAINTS OF PAIN OR ANY DISCOMFORT. ABLE TO AMBULATE WITHOUT ASSISTANCE. SAFETY MEASURES IN PLACE. CALL LIGHT WITHIN REACH. WILL CONTINUE TO MONITOR.
[2021-04-28 20:00] VITALS: BP 102/60
--- NOTE | 2021-04-28 20:24 | NUR ---
BLOOD SUGAR WAS 129 NO INSULIN COVERAGE GIVEN.
--- NOTE | 2021-04-28 22:50 | NUR ---
ANSWERED CALL LIGHT. SANDWICH GIVEN PER PATIENT REQUEST. ALL NEEDS MET.
[2021-04-29] VITALS: BP 108/69
--- NOTE | 2021-04-29 02:45 | NUR ---
PATIENT IS SLEEPING. NO S/S OF RESPIRATORY DISTRESS. CALL LIGHT WITHIN REACH.
[2021-04-29] MEDS: BLOOD GLUCOSE MONITORING 1 DEV DEV FS SCH ×2 (06:31→11:28)
[2021-04-29 07:31] LABS: BASOPHILS % (AUTO) 0.3 % (0.0-2.0); EOSINOPHILS % (AUTO) 0.6 % (0.0-4.0); HEMATOCRIT 39.7 % (36-48); HEMOGLOBIN 13.4 g/dL (12.0-16.0); LYMPHOCYTES # (AUTO) 1.7 K/uL (2.5-16.5); LYMPHOCYTES % (AUTO) 22.2 % (20.5-51.1); MEAN CORPUSCULAR HEMOGLOBIN 28 pg (27-31); MEAN CORPUSCULAR HGB CONC 34 g/dL (33-37); MEAN CORPUSCULAR VOLUME 83.8 fL (80-94); MONOCYTES # (AUTO) 0.7 K/uL (0.8-1.0); MONOCYTES % (AUTO) 9.7 % (1.7-9.3); NEUTROPHILS # (AUTO) 5.2 K/uL (1.8-7.7); NEUTROPHILS % (AUTO) 67.2 % (42.2-75.2); PLATELET COUNT (AUTO) 313 K/uL (140-450); RED BLOOD CELL COUNT(AUTO) 4.74 MIL/uL (4.20-5.40); RED CELL DISTRIBUTION WIDTH 13.8 % (11.6-13.7); WHITE BLOOD COUNT (AUTO) 7.7 K/uL (4.8-10.8)
--- NOTE | 2021-04-29 07:39 | NUR ---
ENDORSED TO AM RN FOR CONTINUITY OF CARE. PATIENT STABLE.
--- NOTE | 2021-04-29 07:44 | NUR ---
REPORT RECEIVED FROM PM SHIFT RN FOR CONTINUITY OF CARE. PT. LYING IN THE BED. ALERT, ORIENTED X4. STABLE. NO NOTED DISTRESS. ON ROOM AIR. 7 WKS B PER ENDORSEMENT. ALL SFETY MEASUTRES IN PLACED. WILL CONTIBNUE TO MONITOR THE PT.
[2021-04-29 08:00] VITALS: BP 114/62
[2021-04-29 08:03] LABS: ALBUMIN 3.2 g/dL (3.4-5.0); ANION GAP 13.7 (8-16); CARBON DIOXIDE 23.7 mmol/L (21-32); CREATININE 0.6 mg/dL (0.6-1.3); POTASSIUM 3.4 mmol/L (3.5-5.1); TOTAL BILIRUBIN 0.3 mg/dL (0.0-1.0)
[2021-04-29] MEDS: LABETALOL 100 MG TAB PO SCH (09:05)
--- NOTE | 2021-04-29 10:12 | NUR ---
PT. STABLE, SITTING IN THE BED.NOT IN DISTRESS NOTED. ALL SAFETY MEASURES IN PLACED. WILL CONTINUE TO MONITOR THE PT.
[2021-04-29] MEDS: INSULIN LISPRO SLIDING SCALE 100 UNITS/ML VIAL SUBQ PRN (11:29)
--- NOTE | 2021-04-29 12:00 | NUR ---
MADE ROUND TO THE PT'S ROOM. PT ALERT,STABLE ON ROOM AIR. NOT IN DISTRESS NOTED. SAFETY MEASERES IN PLACED.PT. ASK ABOUT HER DISCHARGE TO HOME. EXPLAINED HER THERE IS NO ORDER FOR DISCHARGE YETY FROM MD. SAID I AM GOOD AND STABLE. I NO NEED TO STAY IN HOSPITAL. EDUCATION PROVIDED. RE. DIAGNOSIS AND HOSPITAL STAY. AND ASSURE HER. AND TOLD HER WILL TALK TO MD RE. YOUR CONCERN. SAID OK.
--- NOTE | 2021-04-29 14:00 | NUR ---
ANSWER CALL LIGHT. PT SAID I DON'T WANT TO STAY IN HOSPITAL. I WANT TO DO AMA. EDUCATION PROVIDED. ALSO SENT MESSAGE TO PCP DR. STERLING. WITH RETURNED MESSAGE . SAID OK. WILL CARRYOUT ORDER FOR DC AMA.
--- NOTE | 2021-04-29 15:30 | NUR ---
PT'S ISABEL CAME TO CORPORATE RISK ANALYST HER. PT. WALKED OUT WITH BUS PERSON TO THE CAR .
== END 2021-04-29 15:30 | disposition left against medical advice (07) | DRG 566 ==
LOC: MED 19:49 → MMU 04-27 11:08 → MTU 04-27 19:14
PROVIDERS: ADMIT Internal Medicine Cardiovascular Disease; ATTEND Internal Medicine Cardiovascular Disease
DX: O98.511 Other viral diseases complicating pregnancy, first trimester (principal); U07.1 COVID-19; O24.111 Pre-existing type 2 diabetes mellitus, in pregnancy, first trimester; O99.411 Diseases of the circulatory system complicating pregnancy, first trimester; E86.0 Dehydration; Z60.2 Problems related to living alone; O99.281 Endocrine, nutritional and metabolic diseases complicating pregnancy, first trimester; I08.1 Rheumatic disorders of both mitral and tricuspid valves; J98.4 Other disorders of lung; O99.511 Diseases of the respiratory system complicating pregnancy, first trimester; R00.0 Tachycardia, unspecified; E11.65 Type 2 diabetes mellitus with hyperglycemia; O99.891 Other specified diseases and conditions complicating pregnancy; Z3A.01 Less than 8 weeks gestation of pregnancy; Z88.0 Allergy status to penicillin; Z79.899 Other long term (current) drug therapy; Z79.84 Long term (current) use of oral hypoglycemic drugs
CPT/HCPCS: 36415; 76801; 80048; 80053; 81003; 82009; 82948; 84702; 85025; 85651; 86140; 87081; J1815; J2405; Q0092

== ENCOUNTER 2021-05-04 07:29 | Emergency (ER) | payer MEDICAID, SELFPAY ==
[~2021-05-04] VITALS: Ht 165.1 cm; Wt 88.0 kg
[~2021-05-04 07:29] MED LIST changes: +ONDA-188 SL
[2021-05-04 07:49] VITALS: BP 108/68
[2021-05-04 08:55] LABS: BASOPHILS % (AUTO) 0.6 % (0.0-2.0); EOSINOPHILS # (AUTO) 0.1 K/uL (0-0.4); EOSINOPHILS % (AUTO) 2.2 % (0.0-4.0); HEMATOCRIT 38.8 % (36-48); LYMPHOCYTES # (AUTO) 1.4 K/uL (2.5-16.5); LYMPHOCYTES % (AUTO) 23.8 % (20.5-51.1); MEAN CORPUSCULAR HEMOGLOBIN 28 pg (27-31); MEAN CORPUSCULAR HGB CONC 34 g/dL (33-37); MEAN CORPUSCULAR VOLUME 83.5 fL (80-94); MONOCYTES # (AUTO) 0.5 K/uL (0.8-1.0); MONOCYTES % (AUTO) 8.7 % (1.7-9.3); NEUTROPHILS # (AUTO) 3.7 K/uL (1.8-7.7); NEUTROPHILS % (AUTO) 64.7 % (42.2-75.2); PLATELET COUNT (AUTO) 324 K/uL (140-450); RED BLOOD CELL COUNT(AUTO) 4.65 MIL/uL (4.20-5.40); RED CELL DISTRIBUTION WIDTH 13.8 % (11.6-13.7); WHITE BLOOD COUNT (AUTO) 5.8 K/uL (4.8-10.8)
[2021-05-04 09:24] LABS: APPEARANCE,URINE HAZY (CLEAR); BILIRUBIN,URINE NEGATIVE (NEGATIVE); BLOOD, URINE 3+ (NEGATIVE); COLOR,URINE YELLOW (YELLOW); LEUKOCYTE ESTERASE ,URINE 1+ (NEGATIVE); NITRITE, URINE NEGATIVE (NEGATIVE); UGLUCOSE NEGATIVE (NEGATIVE)
[2021-05-04 09:49] LABS: WBC,URINE 16-25 (MOD) /HPF (0-5)
[2021-05-04 09:50] LABS: CALCIUM OXALATE CRYSTALS,UR None Seen /HPF (None Seen); TRICHOMONAS,URINE None Seen /HPF (None Seen); TRIPLE PHOSPHATE CRYSTAL,UR None Seen /HPF (None Seen); URIC ACID CRYSTALS,URINE None Seen /HPF (None Seen); YEAST,URINE None Seen /HPF (None Seen)
--- NOTE | 2021-05-04 09:50 | NUR ---
30/F BIB SELF WITH C/O LOWER ABDOMINAL CRAMPING AND VAGINAL BLEEDING X2 DAYS. STATES SHES NOTICED DARK RED BLOOD WHEN USING THE RESTROOM, DENIES N/V/D, DYSURIA. PATIENT IS 2 MONTHS , A0, PATIENT STATES SHE CANNOT SEE HER OB UNTIL NEXT MONTH.
[2021-05-04] MEDS ORDERED: NITR100C7 PO (09:55)
[2021-05-04 10:15] VITALS: BP 108/68
--- NOTE | 2021-05-04 10:15 | NUR ---
Patient discharged with v/s stable. Written and verbal after care instructions ABOUT THREATENED MISCARRIAGE, URINARY TRACT INFECTION given and explained. Patient alert, oriented and verbalized understanding of instructions. Ambulatory with steady gait. All questions addressed prior to discharge. ID band removed. Patient advised to follow up with PMD. Rx of MACROBID given. Patient educated on indication of medication including possible reaction and side effects. Opportunity to ask questions provided and answered.
== END 2021-05-04 10:15 | disposition home or self-care (01) ==
LOC: MED 07:29
DX: O20.0 Threatened abortion (principal); E11.9 Type 2 diabetes mellitus without complications; Z79.84 Long term (current) use of oral hypoglycemic drugs; Z88.0 Allergy status to penicillin; Z79.899 Other long term (current) drug therapy; Z3A.01 Less than 8 weeks gestation of pregnancy
CPT/HCPCS: 36415; 81001; 84702; 85025; 87086; 99283